=== PATIENT | female | born 1965 | race American Indian/Alaskan Native ===

== ENCOUNTER 2018-01-22 20:18 | Emergency (ER) | payer MEDICAID ==
--- NOTE | 2018-01-22 21:52 | ED PDOC ---
Lower Extremity Pain/Injury Time Seen by Provider: 01/22/18 21:40 Chief Complaint (Nursing): Lower Extremity Problem/Injury Chief Complaint (Provider): Lower Extremity Problem/Injury History Per: Patient History/Exam Limitations: no limitations Onset/Duration Of Symptoms: Days (x5) Current Symptoms Are (Timing): Still Present Additional Complaint(s): 52 y/o female presents to the ED for evaluation of right knee pain since Monday after bumping it against the iron bar of a table. Patient reports localized pain and swelling since incident. Patient also reports of taking her last dose of Advil this morning for symptom relief. Patient describes pain as sharp and radiates into the lower leg. No other complaints at present. PMD: [facility] LNMP: Now Past Medical History Reviewed: Historical Data, Nursing Documentation, Vital Signs Vital Signs: Last Vital Signs Temp 98.4 F 01/22/18 21:13 Pulse 72 01/22/18 21:13 Resp 16 01/22/18 21:13 BP 150/85 01/22/18 21:13 Pulse Ox 100 01/22/18 21:13 - Medical History PMH: No Chronic Diseases - Surgical History Other surgeries: Lasix on her eyes and right bunion repair - Family History Family History: States: Unknown Family Hx - Home Medications Home Medications: Ambulatory Orders Medication Instructions Recorded Ibuprofen [Motrin] 600 mg PO Q6 PRN #20 tab 03/18/14 Prednisone 10 mg PO DAILY 03/18/14 Zithromax 250 mg PO DAILY 03/18/14 diaZEpam [Valium] 5 mg PO Q8 #12 tab 03/18/14 Meloxicam [Mobic] 15 mg PO DAILY #10 tab 01/22/18 - Allergies Allergies/Adverse Reactions: Allergies Allergy/AdvReac Type Severity Reaction Status Date / Time Penicillins Allergy RASH Verified 01/22/18 21:41 Review of Systems ROS Statement: Except As Marked, All Systems Reviewed And Found Negative Musculoskeletal: Positive for: Leg Pain (right knee pain) Physical Exam - Reviewed Nursing Documentation Reviewed: Yes Vital Signs Reviewed: Yes - Physical Exam Comments: GENERAL APPEARANCE: Patient is ambulatory with a limp, awake, alert, oriented x 3, in no acute distress. NECK: Supple, FROM ENT: Mucus membranes moist. Airway patent, (-) stridor. SKIN: Warm, dry; (-) cyanosis. LOWER EXTREMITY: Knee: (+) decreased ROM of the right knee secondary to pain most notably on flexion (-) effusion, (+) diffuse tenderness, (-) ecchymosis, (- ) skin break. Remainder of lower extremity nontender with FROM. (-) instability on valgus or varus stress (-) anterior and posterior drawer sign (-) calf tenderness (-) pedal edema. Sensation intact throughout. (+) pulses CHEST AND RESPIRATORY: (-) rales, (-) rhonchi, (-) wheezes; breath sounds equal bilaterally. Respirations even and nonlabored. HEART AND CARDIOVASCULAR: (-) irregularity - ECG O2 Sat by Pulse Oximetry: 100 (RA) Pulse Ox Interpretation: Normal Medical Decision Making Medical Decision Making: Time: 2142 Impression: Acute knee pain, fracture vs contusion Plan: -- Knees 3 Views RT XR -- Toradol 30 mg IM -- Re-evaluation 2324 XR: (-) fracture (-) dislocation as read by Keny MORAN Patient advised that official radiology read of XR is still pending and will call the patient if there is any discrepancy within 24 hours. Boo bandage applied to knee by ED RN Eboni. Application and placement verified by Keny MORAN. NV intact after placement. On re-evaluation, patient reports improvement of symptoms. On exam, patient remains AAOx3, in no acute distress. On exam, neck is supple, lungs CTA, cardiac RRR, neuro exam shows no focal findings. VSS, stable for discharge. RICE encouraged. Diagnostic results d/w the patient in great detail. Dx of acute knee pain, contusion d/w the patient. Based on history, exam and diagnostic results plan will be for discharge and outpatient follow up. Advised to follow up with primary care physician in 1-2 days without fail. Advised to take medication as prescribed. Return to the emergency room at any time for any new or worsening symptoms. Patient states she fully agrees with and understands discharge instructions. States that she agrees with the plan and disposition. Verbalized and repeated discharge instructions and plan. I have given the patient opportunity to ask any additional questions. _ Scribe Attestation: Documented by Kristina Singh, acting as a scribe for Krystina Bustillo PA-C. Provider Scribe Attestation: All medical record entries made by the Scribe were at my direction and personally dictated by me. I have reviewed the chart and agree that the record accurately reflects my personal performance of the history, physical exam, medical decision making, and the department course for this patient. I have also personally directed, reviewed, and agree with the discharge instructions and disposition. Disposition - Clinical Impression Clinical Impression: Knee pain, Contusion - Patient ED Disposition Is Patient to be Admitted: No Counseled Patient/Family Regarding: Studies Performed, Diagnosis, Need For Followup, Rx Given - Disposition Referrals: Timur Salazar MD [Medical Doctor] - Disposition: Routine/Home Disposition Time: 23:27 Condition: STABLE Additional Instructions: The emergency medical care you received today was directed at your acute symptoms. If you were prescribed any medication, please fill it and take as directed. It may take several days for your symptoms to resolve. Return to the Emergency Department if your symptoms worsen, do not improve, or if you have any other problems. Please contact your doctor in 2 days for re-evaluation and follow up / or call one of the physicians/clinics you have been referred to that are listed on the Patient Visit Information form that is included in your discharge packet. Bring any paperwork you were given at discharge with you along with any medications you are taking to your follow up visit. Our treatment cannot replace ongoing medical care by a primary care provider (PCP) outside of the emergency department. Prescriptions: Meloxicam [Mobic] 15 mg PO DAILY #10 tab Instructions: Contusion (DC), Knee Pain Forms: [employer] ([employer]) Print Language: ROMANSH - POA Present On Arrival: None
[2018-01-22 23:39] VITALS: BP 130/89; PULSE 81; RESP 18; TEMP 98
--- NOTE | 2018-01-23 09:55 | RAD ---
Date of service: 01/22/2018 PROCEDURE: Right Knee Radiographs. HISTORY: joint pain COMPARISON: None. FINDINGS: BONES: Bone alignment and mineralization are normal. There is no acute displaced fracture or bone destruction. JOINTS: Normal. No osteoarthritis. JOINT EFFUSION: There is a small suprapatellar joint effusion. OTHER FINDINGS: None. IMPRESSION: No acute fracture or dislocation. Small suprapatellar joint effusion.
[2018-01-23 15:42] VITALS: O2SAT 100
== END 2018-01-22 23:38 | disposition home or self-care (01) ==
LOC: H.ER 20:18
DX: S80.01XA Contusion of right knee, initial encounter (principal); W22.8XXA Striking against or struck by other objects, initial encounter; Y92.89 Other specified places as the place of occurrence of the external cause
CPT/HCPCS: 73562; 96372; 99283; J1885